=== PATIENT | female | born 1985 | race Caucasian/White ===

== ENCOUNTER 2020-04-06 16:32 | Emergency (ER) | payer BC ==
[~2020-04-06] VITALS: Ht 172.7 cm; Wt 77.1 kg
[2020-04-06] MEDS ORDERED: IV NORMAL SALINE 1000 ML BAG IV ONE (16:45)
[2020-04-06] MEDS ORDERED: ONDANSETRON 4 MG/2 ML VIAL IV ONE (16:45)
[2020-04-06] MEDS ORDERED: IV NS 1000 ML 1,000 ML IV ONE (17:15)
[2020-04-06 17:23] LABS: *BILIRUBIN,URIN NEGATIVE (NEGATIVE); *BLOOD, URINE 2+ (NEGATIVE); *CLARITY,URINE SLIGHTLY CLOUDY (CLEAR); *COLOR,URINE YELLOW (YELLOW); *KETONES,URINE NEGATIVE (NEGATIVE); LEUKOCYTE ESTERASE ,URINE 1+ (NEGATIVE); NITRITE, URINE NEGATIVE (NEGATIVE); UGLUCOSE NEGATIVE (NEGATIVE)
[2020-04-06] MEDS ORDERED: ONDANSETRON ODT 4 MG TAB.RAPDIS SL ONE (18:15)
[2020-04-06] MEDS ORDERED: ONDANSETRON 4 MG/2 ML VIAL ONE (18:20)
--- NOTE | 2020-04-06 18:30 | NUR ---
D/C IV FLUIDS AND REMOVED IV.
[2020-04-06 18:35] VITALS: BP 132/77
[2020-04-06 20:18] LABS: URINE AMORPHOUS URATE FEW /HPF
[2020-04-06 20:23] LABS: BACTERIA,URINE FEW /HPF (NONE SEEN); SQUAMOUS EPITHELIAL CELL,UR FEW /HPF (NONE SEEN)
== END 2020-04-06 18:36 | disposition home or self-care (01) ==
LOC: ER 16:32
DX: B34.9 Viral infection, unspecified (principal); R50.9 Fever, unspecified; Z20.828 Contact with and (suspected) exposure to other viral communicable diseases; N39.0 Urinary tract infection, site not specified; R00.0 Tachycardia, unspecified
CPT/HCPCS: 87086; 93005; A4663; J2405; J7030